=== PATIENT | female | born 1975 | race Hispanic/Latino ===

== ENCOUNTER 2017-08-26 14:29 | Emergency (ER) | payer SELFPAY ==
[2017-08-26] MEDS ORDERED: Sulfameth/Trimethoprim DS 800-160mg TAB ONE (15:54)
[2017-08-26] MEDS ORDERED: Clindamycin 150 MG CAP ONE (15:54)
[2017-08-26] MEDS ORDERED: Neomycin/Polymyxin/HC Otic Solution 10 ML BOT ONE (15:54)
[2017-08-26] MEDS ORDERED: Naproxen 500 MG TAB ONE (16:05)
== END 2017-08-26 16:10 | disposition home or self-care (01) ==
LOC: MADERS 14:29
DX: H60.91 Unspecified otitis externa, right ear (principal); F32.9 Major depressive disorder, single episode, unspecified; F41.9 Anxiety disorder, unspecified; F17.210 Nicotine dependence, cigarettes, uncomplicated
CPT/HCPCS: 87070; 87077; 87186; 87205; 99282